=== PATIENT | male | born 1995 | race Caucasian/White ===

== ENCOUNTER 2017-04-19 02:43 | Emergency (ER) | payer BC ==
[~2017-04-19] VITALS: Ht 172.7 cm; Wt 79.0 kg
[~2017-04-19 02:43] MED LIST: VIVANSE PO
[2017-04-19 02:53] VITALS: TEMP 37.1; Ht 172.7 cm; Wt 79.0 kg
[2017-04-19 03:06] LABS: BASO % 0.3 %; BASO ABS # 0.02 K/uL (0-0.2); COMPLETE YES; EOS % 0.9 %; HEMATOCRIT 43.8 % (42-52); IG% 0.3 %; LYMPH % 38.6 %; LYMPH ABS # 2.58 K/uL (1.2-3.4); MEAN CELL VOLUME 84.9 fL (80-100); MEAN CORPUSCULAR HEMOGLOBIN 29.5 pg (25-34); MEAN CORPUSCULAR HGB CONC 34.7 g/dl (32-36); MEAN PLATELET VOLUME 9.7 fL (7.4-10.4); MONO % 7.8 %; NEUT % 52.1 %; PLATELET COUNT 285 K/uL (130-400); RED BLOOD COUNT 5.16 M/uL (4.7-6.1); WHITE BLOOD COUNT 6.68 K/uL (4.8-10.8)
[2017-04-19] MEDS ORDERED: OPTIRAY 320 IV PRN (03:15)
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
[2017-04-19 03:24] LABS: ALT/SGPT 33 U/L (12-78); AST/SGOT 27 U/L (15-37); BLOOD UREA NITROGEN 17 mg/dl (7-18); BUN/CREATININE RATIO 17.4 (10-20); CALCIUM 8.4 mg/dl (8.5-10.1); CARBON DIOXIDE 22 mmol/L (21-32); CHLORIDE 109 mmol/L (98-107); GLUCOSE 95 mg/dl (70-99); POTASSIUM 3.7 mmol/L (3.5-5.1); SODIUM 141 mmol/L (136-145)
[2017-04-19 03:27] LABS: ALKALINE PHOSPHATASE 68 U/L (45-117)
[2017-04-19] MEDS ORDERED: LISD70CA PO (04:02)
[2017-04-19] MEDS ORDERED: LIDOCAINE HCL 1% 20 ML VIAL ONE (05:00)
--- NOTE | 2017-04-19 05:14 | EMERGENCY ROOM VISIT NOTE ---
ED Visit Note I was asked to the laceration repairs of this patient. Location: Scalp Total length: 3 cm Complexity: Simple Verbal consent was obtained after the risks and benefits were explained, including but not limited to bleeding, scarring, infection, pain, and bone/ nerve damage. At this time, the risks of the procedure are less than the risks of NOT performing the procedure. A time out was taken and the correct patient and site identified. The scalp was prepped with betadine. Copious irrigation was performed using saline. The skin was re-prepped with betadine, the hair cleared from the wound, and a sterile field set. The wound was explored for foreign bodies and none found. Debridement was not performed. The wound edges were approximated using 6 surgical mark in the standard fashion. Hemostasis and excellent approximation was achieved. Antibacterial ointment and a sterile dressing applied. Detailed wound care instructions and signs and symptoms of infection reviewed with the pt. No complications and the patient tolerated the procedure well. Location: Chin Total length: 2 cm Complexity: Simple Verbal consent was obtained after the risks and benefits were explained, including but not limited to bleeding, scarring, infection, pain, and bone/joint /nerve damage. At this time, the risks of the procedure are less than the risks of NOT performing the procedure. A time out was taken and the correct patient and site identified. The skin was prepped with betadine. The target area was anesthetized with 2 ml of 1% lidocaine without epinephrine. Copious irrigation was performed using nss. The skin was re-prepped with betadine and a sterile field set. The wound was explored for foreign bodies and none found. Examination revealed no injury to deep structures such as tendons, bone, or significant blood vessels. Debridement was not performed. The wound edges were approximated using 3, 6-0 simple interrupted nylon sutures. Hemostasis and excellent approximation was achieved. Antibacterial ointment and a sterile dressing applied. Detailed wound care instructions and signs and symptoms of infection reviewed with the pt. No complications and the patient tolerated the procedure well. Location: right middle finger Total length: 3cm Complexity: simple Verbal consent was obtained after the risks and benefits were explained, including but not limited to bleeding, scarring, infection, pain, and bone/joint /nerve damage. At this time, the risks of the procedure are less than the risks of NOT performing the procedure. A time out was taken and the correct patient and site identified. The skin was prepped with betadine. The target area was anesthetized with 2 ml of 1% lidocaine without epinephrine digital block. Copious irrigation was performed using North saline. The skin was re-prepped with betadine and a sterile field set. The wound was explored for foreign bodies and none found. Examination revealed bone. Debridement was not performed. The wound edges were approximated using 5, 5-0 simple interrupted nylon sutures. Hemostasis and excellent approximation was achieved. Antibacterial ointment and a sterile dressing applied. Detailed wound care instructions and signs and symptoms of infection reviewed with the pt. No complications and the patient tolerated the procedure well. Problem List Medical Problems: (1) No significant medical problems Status: Chronic Surgical Problems: (1) History of wisdom tooth extraction Status: Resolved Current/Historical Medications Scheduled Lisdexamfetamine Dimesylate (Vyvanse), 70 MG PO DAILY Allergies Coded Allergies: No Known Allergies (Unverified , 03/03/16) Vital Signs Date Time Temp Pulse Resp B/P (MAP) Pulse Ox O2 Delivery O2 Flow Rate FiO2 04/19/17 03:43 112 100 Room Air 04/19/17 03:13 89 99 Room Air 04/19/17 03:00 137/82 04/19/17 02:57 108 04/19/17 02:53 37.1 105 18 170/117 100 Room Air Laboratory Results 04/19/17 02:50 Red Blood Count 5.16, Mean Corpuscular Volume 84.9, Mean Corpuscular Hemoglobin 29.5, Mean Corpuscular Hemoglobin Concent 34.7, Mean Platelet Volume 9.7, Neutrophils (%) (Auto) 52.1, Lymphocytes (%) (Auto) 38.6, Monocytes (%) (Auto) 7.8, Eosinophils (%) (Auto) 0.9, Basophils (%) (Auto) 0.3, Neutrophils # (Auto) 3.48, Lymphocytes # (Auto) 2.58, Monocytes # (Auto) 0.52, Eosinophils # (Auto) 0.06, Basophils # (Auto) 0.02 04/19/17 02:50 Test 04/19/17 02:50 White Blood Count 6.68 K/uL (4.8-10.8) Red Blood Count 5.16 M/uL (4.7-6.1) Hemoglobin 15.2 g/dL (14.0-18.0) Hematocrit 43.8 % (42-52) Mean Corpuscular Volume 84.9 fL (80-100) Mean Corpuscular Hemoglobin 29.5 pg (25-34) Mean Corpuscular Hemoglobin Concent 34.7 g/dl (32-36) Platelet Count 285 K/uL (130-400) Mean Platelet Volume 9.7 fL (7.4-10.4) Neutrophils (%) (Auto) 52.1 % Lymphocytes (%) (Auto) 38.6 % Monocytes (%) (Auto) 7.8 % Eosinophils (%) (Auto) 0.9 % Basophils (%) (Auto) 0.3 % Neutrophils # (Auto) 3.48 K/uL (1.4-6.5) Lymphocytes # (Auto) 2.58 K/uL (1.2-3.4) Monocytes # (Auto) 0.52 K/uL (0.11-0.59) Eosinophils # (Auto) 0.06 K/uL (0-0.5) Basophils # (Auto) 0.02 K/uL (0-0.2) RDW Standard Deviation 41.3 fL (36.4-46.3) RDW Coefficient of Variation 13.3 % (11.5-14.5) Immature Granulocyte % (Auto) 0.3 % Immature Granulocyte # (Auto) 0.02 K/uL (0.00-0.02) Anion Gap 10.0 mmol/L (3-11) Est Creatinine Clear Calc Drug Dose 112.1 ml/min Estimated GFR () 123.3 Estimated GFR (Non- 106.4 BUN/Creatinine Ratio 17.4 (10-20) Calcium Level 8.4 mg/dl (8.5-10.1) Total Bilirubin 0.3 mg/dl (0.2-1) Direct Bilirubin < 0.1 mg/dl (0-0.2) Aspartate Amino Transf (AST/SGOT) 27 U/L (15-37) Alanine Aminotransferase (ALT/SGPT) 33 U/L (12-78) Alkaline Phosphatase 68 U/L (45-117) Total Protein 7.5 gm/dl (6.4-8.2) Albumin 4.0 gm/dl (3.4-5.0) Ethyl Alcohol mg/dL 247.0 mg/dl (0-3) Departure Information Referrals No Doctor, Assigned (PCP) Patient Instructions [facility]
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
[2017-04-19] MEDS ORDERED: IBUPROFEN 800 MG TAB PO STA (07:09)
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
[2017-04-19 09:01] VITALS: BP 111/57; PULSE 99; O2SAT 95
--- NOTE | 2017-04-19 10:23 | EMERGENCY ROOM VISIT NOTE ---
ED Visit Note First contact with patient: 07:53 I assumed care at the change of shift, Dr. Martinez had been the initial attending. The patient's trauma workup had returned unrevealing. His laceration had been repaired. He was intoxicated with alcohol. As per the nursing staff, the patient was awake and interactive, he had no complaints of abdominal pain. He was not vomiting. He seemed appropriate for discharge. Vital signs were stable. Before I was able to evaluate the patient, he did leave the emergency room. He was given his discharge instructions though by our nursing staff. He of course can return for any worsening complaints or symptoms.
== END 2017-04-19 09:02 | disposition home or self-care (01) ==
LOC: EDBD 02:43 → C.ED 02:44 → C.EDB 09:02
DX: T51.91XA Toxic effect of unspecified alcohol, accidental (unintentional), initial encounter (principal); S01.01XA Laceration without foreign body of scalp, initial encounter; S61.411A Laceration without foreign body of right hand, initial encounter; V19.9XXA Pedal cyclist (driver) (passenger) injured in unspecified traffic accident, initial encounter; F90.9 Attention-deficit hyperactivity disorder, unspecified type